=== PATIENT | male | born 1990 | race Caucasian/White ===

== ENCOUNTER 2022-10-16 07:39 | Emergency (ER) | payer OTHER ==
[~2022-10-16] VITALS: Ht 175.3 cm; Wt 104.0 kg
[2022-10-16] MEDS ORDERED: KAPSPARGO SPRIN25 MG PO (07:52)
[2022-10-16] MEDS ORDERED: LIPITOR10 MG PO (07:53)
[2022-10-16] MEDS ORDERED: ASPIRIN81 MG PO (07:54)
[2022-10-16] MEDS ORDERED: LISINOPRIL10 MG PO (07:54)
[2022-10-16 10:44] VITALS: BP 114/78
--- NOTE | 2022-10-17 18:09 | EKG ---
[facility] [address] [facility] [place] [address] Signed Normal sinus rhythm Septal infarct , age undetermined Abnormal ECG No previous ECGs available Confirmed by MARIZA PERRY MD ([id number]) on 10/17/2022 6:09:14 PM Electronically Signed By: MARIZA PERRY MD 10/17/22 1809 PATIENT NAME: ÁNGELA RODRIGEZ Electrocardiogram DATE OF : 89 PHYSICIAN: MARIZA PERRY MD REPORT #: [id number] REPORT IS CONFIDENTIAL AND NOT TO BE RELEASED WITHOUT AUTHORIZATION
== END 2022-10-16 10:44 | disposition home or self-care (01) ==
LOC: ED 07:39
DX: R07.89 Other chest pain (principal); Z79.899 Other long term (current) drug therapy; Z79.82 Long term (current) use of aspirin
CPT/HCPCS: 36415; 71045; 80053; 84484; 85025; 85730; 93005; 93010; 99285-25